=== PATIENT | male | born 1980 | race Two or more races ===

== ENCOUNTER 2019-04-13 18:48 | Emergency (ER) | payer SELFPAY ==
[~2019-04-13] VITALS: Ht 175.3 cm; Wt 78.8 kg
--- NOTE | 2019-04-13 19:14 | NUR ---
THIS IS A 38Y M COMES IN FOR FEELING LIKE SOMETHING IS STUCK IN HIS THROAT, "ALMOST LIKE MY THROAT IS CLOSING BUT THERES SOMETHING IN THERE." PT HAS HX OF GERD AND STS THIS FEELING HAPPENS SOMETIMES WHEN HE IS EATING BUT THIS TIME IT IS WORSE THAN NORMAL. PT CONNECTED TO MONITORING, VSS CALL LIGHT IN REACH
--- NOTE | 2019-04-13 19:15 | NUR ---
PA AT BEDSIDE TO ASSESS PT
[2019-04-13] MEDS ORDERED: MAALOX/HYOSCYAMINE/LIDOCAINE 45 ML BTL PO ONE (19:30)
[2019-04-13] MEDS ORDERED: FAMOTIDINE 20 MG TABLET PO ONE (19:30)
[2019-04-13] MEDS ORDERED: MAALOX/HYOSCYAMINE/LIDOCAINE 45 ML BTL ONE (19:33)
[2019-04-13] MEDS ORDERED: FAMOTIDINE 20 MG TABLET ONE (19:33)
--- NOTE | 2019-04-13 19:39 | NUR ---
PT MEDICATED PER JUL. PT STS UNABLE TO SWALLOW, FEELS LIKE ITS NOT GOING DOWN. PA TO BE UPDATED
--- NOTE | 2019-04-13 19:52 | NUR ---
ALL RESULTS BACK AT THIS TIME. CHART UP FOR RECHECK
--- NOTE | 2019-04-13 20:46 | NUR ---
PT TO IMAGING AT THIS TIME
[2019-04-13 20:48] VITALS: BP 136/84
--- NOTE | 2019-04-13 20:59 | NUR ---
PT BACK FROM IMAGING
--- NOTE | 2019-04-13 21:14 | NUR ---
ALL RESULTS BACK AT THIS TIME. CHART UP FOR RECHECK
== END 2019-04-13 21:39 | disposition home or self-care (01) ==
LOC: ED 21:20
DX: R13.14 Dysphagia, pharyngoesophageal phase (principal); K21.9 Gastro-esophageal reflux disease without esophagitis
CPT/HCPCS: 70360; 74220; 93005; 99283